=== PATIENT | female | born 1945 | race Two or more races ===

== ENCOUNTER 2017-05-31 05:01 | Day surgery (SDC) | payer OTHER ==
[2017-05-31] MEDS ORDERED: KETOROLAC TROMETHAMINE INJ 30 MG/ML VIAL ONE (05:44)
[2017-05-31] MEDS ORDERED: BUPIVACAINE MPF 0.5% W/EPI INJ 30 ML VIAL ONE (05:44)
[2017-05-31] MEDS ORDERED: BACITRACIN 50000 UNITS/VIAL ONE (05:45)
[2017-05-31] MEDS ORDERED: CEFAZOLIN SODIUM/DEXTROSE,ISO 50 ML IV ONE (05:54)
== END 2017-05-31 06:45 | disposition home or self-care (01) ==
LOC: DS 05:01
PROVIDERS: ATTEND Specialist
DX: M17.11 Unilateral primary osteoarthritis, right knee (principal); Z53.9 Procedure and treatment not carried out, unspecified reason
CPT/HCPCS: 36415; 86850; 87081; J0690; J1885; J3490

== ENCOUNTER 2017-06-28 05:04 | Inpatient (IN) | payer OTHER ==
[~2017-06-28] VITALS: Ht 149.9 cm; Wt 65.8 kg
[2017-06-28 09:30] VITALS: BP 134/73
--- NOTE | 2017-06-28 10:00 | NUR ---
MS/MODEL AND PATTERN SUPERVISOR PATIENT RECEIVED FROM OR S/P RIGHT TKA. AT THIS TIME UNABLE TO ASSESS TO ORIENTATION STATUS SECONDARY PATIENT STILL UNDER SPINAL ANESTHESIA. NO SIGNS OF ACUTE DISTRESS. NO S/S OF PAIN OR DISCOMFORT. ALL NEEDS ATTENDED TO. CALL LIGHT WITHIN REACH. WILL CONTINUE TO MONITOR TO ENSURE SAFETY.
[2017-06-28] MEDS ORDERED: GABA-534 PO (10:19)
[2017-06-28] MEDS ORDERED: SERT100T PO (10:19)
[2017-06-28] MEDS ORDERED: OXYC-34 PO (10:19)
[2017-06-28] MEDS ORDERED: DILT360C28 PO (10:19)
[2017-06-28] MEDS ORDERED: CALC-883 PO (10:19)
[2017-06-28] MEDS ORDERED: MULT1TAB73 PO (10:20)
[2017-06-28] MEDS ORDERED: ASPI325T2 PO (10:20)
[2017-06-28] MEDS ORDERED: BACL10TA PO (10:20)
[2017-06-28] MEDS ORDERED: TRAZ-144 PO (10:20)
[2017-06-28] MEDS ORDERED: OMEG1CAP PO (10:20)
[2017-06-28] MEDS ORDERED: ISOS60TA4 PO (10:20)
[2017-06-28] MEDS ORDERED: LEVO88TA5 PO (10:20)
[2017-06-28] MEDS ORDERED: OMEP20CA10 PO (10:20)
[2017-06-28] MEDS ORDERED: DOCU-170 PO (10:20)
[2017-06-28] MEDS ORDERED: MELO-270 PO (10:20)
[2017-06-28] MEDS ORDERED: NITR0.4T SL (10:20)
[2017-06-28] MEDS ORDERED: UBID100C13 PO (10:20)
[2017-06-28] MEDS ORDERED: ASCO500T9 PO (10:20)
[2017-06-28 12:00] VITALS: BP 120/70
[2017-06-28 16:00] VITALS: BP 122/72
--- NOTE | 2017-06-28 16:51 | NUR ---
MS/RN DR ALEXANDER SPOKE WITH DR ALEXANDER AND MADE AWARE THAT PER PATIENT PAIN MEDICATION DILAUDID 1MG SQ AND OXY IR 10MG IS NOT WORKING FOR HER AND IS REQUESTING FOR HIGHER DOSE OF PAIN MED. PER DR ALEXANDER CONTINUE TO GIVE HER DILAUDID 1MG SQ ORDERED, SECOND DOSE AND CONTINUE TO MONITOR FOR FURTHER CHANGES.
--- NOTE | 2017-06-28 18:28 | NUR ---
MS/RN CLOSING NOTE PATIENT IN BED AWAKE IN STABLE CONDITION. ALERT AND ORIENTED TIMES 4. ABLE TO MAKE DECISIONS AND NEEDS KNOWN. NO SIGNS OF ACUTE DISTRESS. COMPLAIN OF PAIN TO S/P RIGHT TKA 05/20. DILAUDID 1MG SQ Q 3 HRS PRN GIVEN. TOLERATING WELL. ALL NEEDS ATTENDED TO. CALL LIGHT WITHIN REACH. WILL ENDORSE TO NEXT SHIFT FOR CONTINUITY OF CARE.
--- NOTE | 2017-06-28 19:30 | NUR ---
MISSILE TRACKING TECHNICIAN NOTE PATIENT IN BED AWAKE IN STABLE CONDITION. ALERT AND ORIENTED TIMES 4. ABLE TO MAKE DECISIONS AND NEEDS KNOWN. NO SIGNS OF ACUTE DISTRESS. COMPLAIN OF PAIN TO S/P RIGHT TKA 05/20. PAIN MANAGEMENT AND RELAXATION TECHNIQUES WILL BE PROVIDED. RIGHT LEG ELEVATED. CALL LIGHT WITHIN REACH.
[2017-06-28 20:00] VITALS: BP 95/56
[2017-06-28 22:00] VITALS: BP 95/56
[2017-06-29 00:32] VITALS: BP 90/52
[2017-06-29 04:03] VITALS: BP 80/53
--- NOTE | 2017-06-29 06:23 | NUR ---
AGRICULTURAL ENGINEERING TECHNICIAN NOTE PATIENT STABLE. NO RESPIRATORY DISTRESS OR SOB. PAIN MANAGED WITH MEDICATION ORDERED, AND RELAXATION TECHNIQUES. IV SITE INTACT, WITH FLUIDS RUNNING ORDERED. ALL NEEDS MET AND ATTENED TO. WILL ENDORSE TO DAY SHIFT FOR ERA.
[2017-06-29 06:37] LABS: BASOPHILS % (AUTO) 0.4 % (0.0-2.0); EOSINOPHILS # (AUTO) 0.2 /CMM (0.0-0.7); HEMATOCRIT 38 % (33-45); HEMOGLOBIN 12.8 g/dL (11.5-14.8); LYMPHOCYTES # (AUTO) 1.1 /CMM (0.8-4.8); LYMPHOCYTES % (AUTO) 16.3 % (20.0-44.0); MEAN CORPUSCULAR HEMOGLOBIN 31 PG (26.0-33.0); MEAN CORPUSCULAR HGB CONC 34 g/dl (31.0-36.0); MEAN CORPUSCULAR VOLUME 93 fL (82-100); MONOCYTES # (AUTO) 0.6 /CMM (0.1-1.30); MONOCYTES % (AUTO) 8.8 % (2.0-12.0); NEUTROPHILS # (AUTO) 4.8 /CMM (1.8-8.9); NEUTROPHILS % (AUTO) 71.5 % (43.0-81.0); PLATELET COUNT (AUTO) 125 /CMM (150-450); RDW COEFFICIENT OF VARIATION 14.1 (11.5-15.0); RED BLOOD CELL COUNT(AUTO) 4.09 MIL/uL (4.0-5.2); WHITE BLOOD COUNT (AUTO) 6.7 K/uL (4.3-11.0)
[2017-06-29 06:59] LABS: CREATININE 0.7 mg/dL (0.6-1.3)
[2017-06-29 07:07] VITALS: BP 84/53
--- NOTE | 2017-06-29 07:40 | NUR ---
RN OPENING NOTES RECEIVED PATIENT AWAKE RESTING COMFORTABLY IN BED. PATIENT IS AOX4. PATIENT COMPLAINING OF RIGHT KNEE PAIN 03/20. WILL IMPLEMENT APPROPRIATE INTERVENTIONS. PATIENT SATURATING ADEQUATELY ON 2L NC AT 100%. PATIENT ON TELE MONITOR READING SR 71. PATIENT HAS F/C IN PLACED ORDER FOR D/C TODAY (2ND DAY POST OP). CLEAR YELLOW URINE DRAINING. PATIENT HAS RIGHT LEG WRAP OVER ZARINA. PATIENT DENIES SOB. DENIES SOB. RESPIRATIONS EVEN AND UNLABORED. NO S/S OF ACUTE DISTRESS NOTED. IV ACCESS RIGHT HAND PATENT AND INTACT. D5 1/2NS RUNNING @ 75MLS/HR. PATIENT TO [facility] PT EVAL TODAY. OVERHEAD TRAPEZE IN PLACE. HOB ELEVATED. BED LOCKED IN THE LOWEST POSITION WITH SIDERAILS UP X2. CALL LIGHT WITHIN REACH. WILL CONTINUE TO MONITOR, ASSESS AND EDUCATE PATIENT DURING SHIFT.
[2017-06-29 08:13] VITALS: BP 84/53
--- NOTE | 2017-06-29 08:58 | NUR ---
RN NOTES D/C F/C. BALLOON DEFLATED WITH 8ML OF NS EXTRACTED. PATIENT TOLERATED WELL. 150ML OF URINE DRAINED AND NOTED. WILL CONTINUE TO MONITOR
--- NOTE | 2017-06-29 08:59 | NUR ---
RN NON ADMIN NOTES PATIENT INITIAL MORNING BP 84/53. RECHECKED BP 100/59. HELP MORNING BP MEDS. PATIENT REQUESTING PAIN MEDS FOR PAIN POST OP. DO NOT WANT PATIENT TO HAVE SEVERE HYPOTENSION WITH BP MEDS AND PAIN MEDICATION COMBINATION.
--- NOTE | 2017-06-29 10:50 | NUR ---
RN NOTES PATIENT COMPLAINING OF CHEST PAIN. WILL ADMINISTER NITROSTAT Q5 MIN.
--- NOTE | 2017-06-29 11:18 | NUR ---
RN NOTES PATIENT GIVEN 3 NITROGLYCERIN SUBLINGUAL. PATIENT ANGINA SUBSIDED. WILL CONTINUE TO MONITOR PATIENT.
[2017-06-29 16:00] VITALS: BP 115/50
--- NOTE | 2017-06-29 17:35 | NUR ---
RN CLOSING NOTES PATIENT RESTING COMFORTABLY IN BED WITH EYES CLOSED. RESPIRATIONS EVEN AND UNLABORED. PATIENT ON 2L NC SATURATING AT 99%. NO ACUTE DISTRESS NOTED. D5 1/2 NS RUNNING @ 75 ML/HR. ALL NEEDS MET. ALL MEDS GIVEN APPROPRIATE. WILL GIVE REPORT TO NIGHT RN FOR CONTINUATION OF CARE.
--- NOTE | 2017-06-29 19:30 | NUR ---
RN OPEN NOTES RECEIVED PATIENT RESTING IN BED, EASILY AROUSABLE TO NAME. A/O X4. NO SIGNS OF DISTRESS OR DISCOMFORT. BREATHING EVEN AND UNLABORED. IV ACCESS IN R HAND WITH D5 1/2 NS INFUSING, PATENT AND INTACT, NO SIGNS OF REDNESS OR INFILTRATION. DRESSING ON R LEG C/D/I. BED IN LOW LOCKED POSITION WITH SIDE RAILS X2. CALL LIGHT WITHIN REACH. WILL CONTINUE TO MONITOR.
[2017-06-29 20:00] VITALS: BP 146/81
--- NOTE | 2017-06-29 23:17 | NUR ---
RN NOTES ADMINISTERED DILAUDID 1MG ORDERED FOR R KNEE PAIN 04/19. VSS. WILL CONTINUE TO MONITOR.
--- NOTE | 2017-06-30 02:23 | NUR ---
RN NOTES ADMINISTERED DILAUDID 1MG ORDERED FOR R KNEE PAIN 06/20. BP 137/71 P85. WILL CONTINUE TO MONITOR.
--- NOTE | 2017-06-30 04:34 | NUR ---
RN NOTES ADMINISTERED OXY IR 10MG ORDERED FOR PAIN 8/10 IN R KNEE. VSS. WILL CONTINUE TO MONITOR.
--- NOTE | 2017-06-30 06:35 | NUR ---
RN NOTES ADMINISTERED DILAUDID 1MG ORDERED FOR R KNEE PAIN 05/20. VSS. WILL CONTINUE TO MONITOR.
--- NOTE | 2017-06-30 07:48 | NUR ---
RN CLOSING NOTES PATIENT AWAKE IN BED. A/O X4. NO SIGNS OF DISTRESS OR DISCOMFORT. BREATHING EVEN AND UNLABORED. IV ACCESS IN R HAND WITH D5 1/2 NS INFUSING, PATENT AND INTACT, NO SIGNS OF REDNESS OR INFILTRATION. PAIN 4/10 IN R KNEE AND TOLERABLE AT THIS TIME. DRESSING ON R LEG C/D/I. ALL NEEDS MET. NO SIGNIFICANT CHANGES THROUGH THE NIGHT. BED IN LOW LOCKED POSITION WITH SIDE RAILS X2. CALL LIGHT WITHIN REACH. ENDORSED TO AM SHIFT FOR ERA.
[2017-06-30 08:00] VITALS: BP 164/96
--- NOTE | 2017-06-30 08:25 | NUR ---
MS RN RECEIVED ON BED, AWAKE,ALERT,ORIENTED X4,NOT IN ANY FORM OF DISTRESS, RESPIRATIONS EVEN AND UNLABORED,NO SOB NOTED, LUNGS ARE CLEAR,ABDOMEN SOFT,POSITIVE BOWEL SOUNDS, DENIES PAIN AT THIS TIME.S/P RIGHT KNEE SX, W/ KNEE DRESSING DRY AND INTACT,WILL MONITOR PATIENT.
--- NOTE | 2017-06-30 08:30 | NUR ---
MS NAVARRO BREAKFAST SERVED,DUE MEDS GIVEN, TOLERATED WELL.
--- NOTE | 2017-06-30 09:41 | NUR ---
MS RN WAS SEEN BY WAN CRUZ TO DISCHARGE PATIENT, WILL WAIT FOR MEDICAL MD'S DECISION.
--- NOTE | 2017-06-30 10:06 | NUR ---
MS RN WAS SEEN BY NICK Bartlett/ ORDER TO BE DISCHARGE IN AM TO REHAB.
--- NOTE | 2017-06-30 11:30 | NUR ---
MS RN WAS SEEN BY PT, WALKS W/ WALKER,TOLERATED WELL.
--- NOTE | 2017-06-30 15:00 | NUR ---
MS AIRCRAFT INSTRUMENT ENGINEER AT BEDSIDE. NO DISTRESS NOTED.
[2017-06-30 16:00] VITALS: BP 106/55
--- NOTE | 2017-06-30 18:04 | NUR ---
MS RN PT IN BED. CALL LIGHT WITHIN REACH. NO DISTRESS NOTED. WILL CONTINUE TO MONITOR. WILL ENDORSE TO FOOD SERVICE SPECIALIST.
--- NOTE | 2017-06-30 19:30 | NUR ---
RN NOTES RECEIVED PT. AWAKE ON BED, A/OX3, RIGHT KNEE WITH DRESSING DRY AND INTACT, DENIES PAIN AT THIS TIME, NO SOB, CALL LIGHT WITHIN REACH, SDIERAILS UPX2, CONTINUE TO MONITOR
[2017-06-30 20:00] VITALS: BP 102/54
--- NOTE | 2017-06-30 22:07 | NUR ---
RN NOTES COMPLAINED OF RIGHT KNEE PAIN- DILAUDID 1MG SQ GIVEN ORDERED, V/S STABLE
--- NOTE | 2017-07-01 01:08 | NUR ---
RN NOTES COMPLAINED OF RIGHT KNEE PAIN- DILAUDID 1MG IM GIVEN ORDERED, V/S STABLE
--- NOTE | 2017-07-01 03:01 | NUR ---
RN NOTES IV LINE GOT INFILTRATED, ICU CHARGE NURSE CAME AND INSERT A NEW LINE
--- NOTE | 2017-07-01 04:05 | NUR ---
RN NOTES COMPLAINED OF RIGHT KNEE PAIN- DILAUDID 1 MG SQ GIVEN ORDERED, V/S STABLE
--- NOTE | 2017-07-01 07:07 | NUR ---
RN NOTES COMPLAINED OF RIGHT KNEE PAIN- DILAUDID 1MG SQ GIVEN ORDERED, V/S STABLE, MORNING CARE RENDERED. PT. NEEDS ATTENDED
--- NOTE | 2017-07-01 07:54 | NUR ---
MS RN OPENING NOTE PATIENT IS ALERT AND ORIENTED x3. NO PAIN AT THIS TIME. NO SOB OR DISTRESS NOTED. CALL LIGHT WITHIN REACH. SAFETY MEASURES IMPLEMENTED. ABLE TO COMMUNICATE NEEDS. S/P RIGHT KNEE ATHROPLASTY ON 06/28/[address], DRY AND INTACT. USES BEDPAN. IV INTACT AND PATENT, NO REDNESS OR SWELLING NOTED. IV FLUIDS- D1/2 NS AT 75ML/HR RUNNING AT THIS TIME. POSSIBLE DISCHARGE TODAY, WILL FOLLOW UP WITH MD. WILL CONTINUE TO MONITOR PATIENT THROUGHOUT SHIFT
[2017-07-01 08:00] VITALS: BP 148/78
[2017-07-01] MEDS ORDERED: SENN8.6T6 PO (10:48)
[2017-07-01] MEDS ORDERED: Naloxone Hcl IV (10:48)
[2017-07-01] MEDS ORDERED: DOCU-25 PO (10:48)
[2017-07-01] MEDS ORDERED: ASPI325T2 PO (10:48)
[2017-07-01] MEDS ORDERED: OXYC5CAP3 PO (10:48)
[2017-07-01] MEDS ORDERED: HYDR2DIS SQ (10:48)
[2017-07-01] MEDS ORDERED: BISA10SU8 RC (10:48)
[2017-07-01 16:00] VITALS: BP 134/66
--- NOTE | 2017-07-01 17:10 | NUR ---
MS DIRECTOR TREASURER NOTE PATIENT IS ALERT AND ORIENTED x3. NO PAIN AT THIS TIME. NO SOB OR DISTRESS NOTED. IV REMOVED, SKIN INTACT. ABLE TO COMMUNICATE NEEDS. ALL DUE MEDICATIONS GIVEN ORDERED. ALL BELONGINGS ACCOUNTED FOR. ALL DISCHARGE INSTRUCTIONS GIVEN TO PATIENT, GRANDSON AND RN FIRE MARSHAL AT [facility]. PATIENT ABLE TO READ BACK DISCHARGE INSTRUCTIONS BACK. LEFT VIA AMBULANCE WITH TWO ATTENDANCE SECRETARY. S/P RIGHT TOTAL KNEE REPLACEMENT, DRESSING INTACT.
== END 2017-07-01 17:10 | DRG 470 ==
LOC: DS 05:04 → MED 09:17 → TELE 10:45 → MED 06-29 08:40 → MEDSG2 06-30 11:57
PROVIDERS: ADMIT Specialist; ATTEND Specialist
PROC: 0SRC0J9 Replacement of Right Knee Joint with Synthetic Substitute, Cemented, Open Approach (ICD-10-PCS; principal; 2017-06-28 07:00)
DX: M17.11 Unilateral primary osteoarthritis, right knee (principal); F11.20 Opioid dependence, uncomplicated; I10 Essential (primary) hypertension; E03.9 Hypothyroidism, unspecified; E66.9 Obesity, unspecified; F32.9 Major depressive disorder, single episode, unspecified; F41.9 Anxiety disorder, unspecified; G89.4 Chronic pain syndrome; I25.10 Atherosclerotic heart disease of native coronary artery without angina pectoris; K21.9 Gastro-esophageal reflux disease without esophagitis; Z90.49 Acquired absence of other specified parts of digestive tract; G47.00 Insomnia, unspecified; Z68.29 Body mass index [BMI] 29.0-29.9, adult
CPT/HCPCS: 36415; 71010-TC; 80048-TC; 83735-TC; 85025-TC; 86850-TC; 87081-TC; 88305-TC; 88311-TC; 97110-TC; 97116-TC; 97530-TC; 97760-TC; A4217; A4606; A6402; C1713; J0690; J1170; J1200; J1650; J1885; J2250; J2270; J2274; J2405; J2704; J3010; J3490; J7060